=== PATIENT | female | born 1990 | race Caucasian/White ===

== ENCOUNTER 2019-03-04 21:17 | Observation (INO) | payer OTHER ==
[~2019-03-04] VITALS: Ht 157.5 cm; Wt 78.0 kg
[2019-03-04] MEDS ORDERED: PREN1TAB78 MT (21:55)
[2019-03-04] MEDS ORDERED: FERR-71 MT (21:55)
[2019-03-04] MEDS ORDERED: LACTATED RINGERS 1,000 ML IV SCH (22:06)
[2019-03-04] MEDS ORDERED: LACTATED RINGERS 1,000 ML IV ONE (22:06)
[2019-03-04] MEDS ORDERED: CITRIC ACID/SODIUM CITRATE SOLN 30ML UDC PO SCH (22:15)
[2019-03-04] MEDS ORDERED: ONDANSETRON HCL 4MG/2ML INJ IV ONE (22:15)
[2019-03-04] MEDS: TERBUTALINE SULFATE 1MG/ML VIAL SUBCUT PRN ×2 (22:57→23:51)
[2019-03-04 23:05] LABS: HEMATOCRIT 31.8 % (36.0-48.0); HEMOGLOBIN 10.6 g/dL (12.0-16.0); MEAN CORPUSCULAR HEMOGLOBIN 26.4 pg (28.0-32.0); MEAN CORPUSCULAR VOLUME 79.2 fL (81.0-99.0); PLATELET 239 x1000/uL (130-400); RED BLOOD CELL COUNT 4.02 mill/uL (4.2-5.4); RED CELL DISTRIBUTION WIDTH 17.7 % (11.6-14.6)
[2019-03-04 23:08] LABS: CLARITY URINE CLOUDY (CLEAR); COLOR URINE YELLOW (YELLOW); KETONES URINE TRACE (NEGATIVE); LEUKOCYTE ESTERASE URINE 1+ (NEGATIVE); NITRITE URINE NEGATIVE (NEGATIVE); OCCULT BLOOD URINE NEGATIVE (NEGATIVE); PROTEIN URINE 1+ (NEGATIVE); SPECIFIC GRAVITY URINE 1.027 (1.005-1.030)
[2019-03-04 23:40] LABS: CHLORIDE 107 mEq/L (98-107)
[2019-03-05] MEDS ORDERED: POTASSIUM CHLORIDE 20MEQ TABLET SR PO ONE (00:15)
[2019-03-05] MEDS ORDERED: CEFAZOLIN 1000MG PREMIX 50 ML IV SCH (00:30)
== END 2019-03-05 01:35 | disposition home or self-care (01) ==
LOC: 8 EST LDRP 21:17
PROVIDERS: ADMIT Obstetrics & Gynecology; ATTEND Obstetrics & Gynecology
DX: O21.2 Late vomiting of pregnancy (principal); O26.893 Other specified pregnancy related conditions, third trimester; R10.13 Epigastric pain; Z3A.35 35 weeks gestation of pregnancy
CPT/HCPCS: 36415; 80053; 81003; 85027; 96361; 96365; 96372; 96375; 99281; G0378; J0690; J2405; J3105; J7120; 96360